=== PATIENT | male | born 1955 | race Caucasian/White ===

== ENCOUNTER 2018-05-11 15:41 | Outpatient (CLI) | payer OTHER ==
--- NOTE | 2018-05-11 16:23 | ULT ---
RIGHT LOWER EXTREMITY VENOUS ULTRAOSUND WITH DOPPLER: History: Right leg pain. Comparison: None. Technique: Grayscale, color flow, doppler imaging and spectral waveform analysis was performed of the right lower extremity venous system. FINDINGS: There is compressibility, presence of flow, and augmentation in the common femoral vein, femoral vein , and popliteal vein. Flow in the greater saphenous vein, profunda vein and posterior tibial vein. IMPRESSION: No evidence of thrombus in the right lower extremity deep venous system. POS: RICKY
== END 2018-05-11 15:42 | disposition home or self-care (01) ==
LOC: BICULT 15:41
PROVIDERS: ATTEND Family Medicine
DX: M79.604 Pain in right leg (principal)

== ENCOUNTER 2018-05-31 14:08 | Outpatient (CLI) | payer OTHER ==
--- NOTE | 2018-05-31 15:36 | RAD ---
RIGHT KNEE THREE VIEWS: 05/31/18 HISTORY: Right knee pain. FINDINGS: Joint spaces are preserved. No acute fracture, dislocation or fluid distention of the suprapatellar b ursa. At the posterior aspect of the proximal tibial shaft, an oval heterogeneous area of dystrophic type sclerotic density is 4.6 cm overall length and has the appearance of a marrow infarct. No aggres sive characteristics. 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 No acute osseous abnormalities are demonstrated. POS: RICKY
== END 2018-05-31 14:09 | disposition home or self-care (01) ==
LOC: BICRAD 14:08
PROVIDERS: ATTEND Family Medicine
DX: M23.91 Unspecified internal derangement of right knee (principal)

== ENCOUNTER 2018-06-13 09:38 | Outpatient (CLI) | payer OTHER ==
--- NOTE | 2018-06-13 11:54 | MRI ---
MRI OF RIGHT KNEE: DATE: 06/13/2018. PROVIDED CLINICAL HISTORY: Right knee pain without injury. FINDINGS: The anterior cruciate ligament, posterior cruciate ligament, medial collateral ligament, and lateral collateral ligamentous complex demonstrate an intact MR appearance, as does the extensor mechanism. There is a complex tear involving the body-posterior horn junction of the medial meniscus with displa cement of meniscal tissue within the medial meniscotibial recess. The lateral meniscus demonstrates no evidence for tear. No focal articular cartilage defect is apparent. Signal inhomogeneity involving the medial femoral c ondylar articular cartilage likely reflects chondrosis. There is a mild knee joint effusion. No foc al concerning regional marrow or muscular signal abnormality is evident. The area of benign-appearin g sclerosis involving the posterior proximal tibial metadiaphyseal region is seen radiographically de monstrates findings suggesting sequelae of prior, healed fibroxanthoma or other benign sclerotic proc ess. IMPRESSION: 1. Medial meniscal tear. 2. Mild knee joint effusion. POS: OFF
== END 2018-06-13 09:39 | disposition home or self-care (01) ==
LOC: MRI 09:38
DX: S83.241A Other tear of medial meniscus, current injury, right knee, initial encounter (principal); M25.561 Pain in right knee; M25.461 Effusion, right knee; M87.9 Osteonecrosis, unspecified